=== PATIENT | female | born 1945 | race Native Hawaiian/Other Pacific Islander ===

== ENCOUNTER 2018-02-11 11:42 | Emergency (ER) | payer MEDICARE, OTHER ==
[2018-02-11 11:42] VITALS: BMI 23.2
== END 2018-02-11 12:28 | disposition left against medical advice (07) ==
LOC: ED 11:42
DX: Z02.89 Encounter for other administrative examinations (principal); R05 Cough

== ENCOUNTER 2018-07-31 06:54 | Outpatient (CLI) | payer MEDICARE, OTHER | END 2018-07-31 06:55 | disposition home or self-care (01) | LOC: RAD 06:54 ==

== ENCOUNTER → 2018-08-19 | Day surgery (SDC) | payer MEDICARE, OTHER ==
[2018-08-10 14:53] VITALS: BMI 23.4
[~2018-08-19] MED LIST: Midazolam 2 MG/2 ML VIAL IVP ONE; Midazolam 2 MG/2 ML VIAL ONE; Oxycodone/Acetaminophen 5/325 mg Tab PO PRN; Sodium Chloride 0.45% 1,000 ML IV SCH
[2018-08-19 10:27] VITALS: TEMP 98
[2018-08-19 10:27] LABS: BASO # 0.02 K/mm3 (0.0-2.0); BASO % 0.4 % (0.0-3.0); EOS # 0.1 (0.0-0.7); EOS % 2.9 % (1.5-5.0); HEMOGLOBIN 14.5 g/dL (12.0-16.0); LYMPH # 1.2 (1.2-3.4); LYMPH % 26.1 % (22.0-35.0); MEAN CELL VOLUME 92.8 fl (80.0-105.0); MEAN CORPUSCULAR HGB CONC 32.3 g/dl (31.0-37.0); MEAN PLATELET VOLUME 8.7 fl (7.0-11.0); MONO # 0.3 (0.1-0.6); MONO % 6.5 % (1.0-6.0); RBC 4.84 10^6/uL (3.5-6.1); RED CELL DISTRIBUTION WIDTH 14.1 % (11.5-14.5); WHITE BLOOD COUNT 4.8 10^3/uL (4.5-11.0)
[2018-08-19 10:35] LABS: INR 0.91; PARTIAL THROMBOPLASTIN TIME 37.1 Seconds (26.9-38.3); PROTHROMBIN TIME 10.3 SECONDS (9.4-12.5)
[2018-08-19 10:37] LABS: BLOOD UREA NITROGEN 22 mg/dL (7-21); CALCIUM 9.7 mg/dL (8.4-10.5); GFR NON-AFRICAN AMERICAN > 60
--- NOTE | 2018-08-19 13:51 | US ---
PROCEDURE: Ultrasound-guided left thyroid fine needle aspiration biopsy. CLINICAL HISTORY: Multiple thyroid nodules. Dominant 1.8 cm hypoechoic hypervascular nodule in the left lower pole. History for lung CA. Evaluate for malignancy PHYSICIAN(S): Yonny Duran M.D. TECHNIQUE: The relative risks and indications for the procedure were explained to the patient and consent obtained. The patient was placed supine on the stretcher with the neck extended and preliminary sonography of the thyroid performed. This reveal 1.6 cm hypoechoic dominant nodule in the left lower pole. The neck was prepped and draped in the usual sterile fashion. Conscious sedation and monitoring were provided throughout the procedure by a nurse. 1% Xylocaine was used to anesthetize the skin and soft tissues at the access site. Three passes with a 22-gauge needle were performed under ultrasound guidance for fine needle aspiration of the 0.6 cm hypoechoic nodule in the left thyroid. The slides were reviewed by pathology and deemed adequate. The patient tolerated the procedure well. IMPRESSION: 1. Ultrasound guided fine needle aspiration of a 1.6 cm hypoechoic hypervascular nodule in the left lower pole
[2018-08-19 14:11] VITALS: RESP 18; O2SAT 97
[2018-08-19 14:48] VITALS: BP 146/87; PULSE 63
== END | disposition home or self-care (01) ==
LOC: SDS 09:44
PROVIDERS: ATTEND Radiology Vascular & Interventional Radiology
DX: E04.1 Nontoxic single thyroid nodule (principal); Z85.118 Personal history of other malignant neoplasm of bronchus and lung
CPT/HCPCS: 10005; 36415; 80048; 85025; 85610; 85730; 88173; 88305; J2250; J2405; J3010; J7030